=== PATIENT | female | born 1985 | race Caucasian/White ===

== ENCOUNTER → 2018-06-16 | Outpatient (CLI) | payer OTHER ==
--- NOTE | 2018-06-16 13:22 | KCIC ---
EXAM: MRI Left foot, attention to midfoot-forefoot DATE: 06/16/2018 9:30 AM CLINICAL HISTORY: Left foot pain, laterally COMPARISON: None available. TECHNIQUE: Multiplanar, multisequence MR imaging of the left foot without IV contrast FINDINGS: T1 marrow signal is grossly preserved without evidence of acute fracture. No edema is seen within the visualized portion of the talar head and medial navicular, incompletely assessed on this [id number].Joint spaces are preserved without significant degenerative/proliferative change. There is mild soft tissue swelling overlying the fifth metatarsal tubercle, likely contusion. Visualized flexor and extensor tendons are normal in signal and morphology. No tenosynovitis. The Lisfranc ligament is intact. No definite tarsometatarsal offset. IMPRESSION: 1. Mild soft tissue edema seen overlying the base of the fifth metatarsal, likely soft tissue contusion. No definite associated fracture or dislocation. 2. Marrow edema within the talus, navicular and calcaneus partially visualized without discrete T1 fracture line, only partially evaluated, likely bone contusion. Electronically signed by: Luther Marina MD (06/16/2018 1:18 PM) [id number]
== END | disposition home or self-care (01) ==
LOC: KCIC MRI 08:57
PROVIDERS: ATTEND Orthopaedic Surgery Foot and Ankle Surgery
DX: R60.0 Localized edema (principal)
CPT/HCPCS: 73718